=== PATIENT | female | born 1940 | race Caucasian/White ===

== ENCOUNTER → 2016-05-08 | Outpatient (CLI) | payer MEDICARE ==
[~2016-05-08] MED LIST: ALLEGRA ALLERG180 MG PO; AMBIEN10 MG PO; ASPIRIN E.C. 8181 MG PO; ATENOLOL25 MG PO; BETAPACE 80MG80 MG PO; CALCIUM + D 6001 TAB PO; CELEXA10 MG PO; CLEOCIN HCL300 MG PO; COZAAR 25MG25 MG/TAB PO; CRESTOR 10MG10 MG PO; ELIQUIS 5MG PO; IBU600 MG PO; LASIX 20MG TABL20 MG PO; LASIX20 MG PO; OMEGA-31000 MG PO; SINGULAIR 110 MG/TAB PO; TENORMIN 5050 MG/TAB PO; TENORMIN100 MG PO; ULTRAM 50MG TAB50 MG PO; VITAMIN C500 MG PO; ZOCOR 20MG20 MG PO
== END ==
LOC: MC.RAD 11:28
DX: Z12.31 Encounter for screening mammogram for malignant neoplasm of breast (principal)

== ENCOUNTER → 2017-01-16 | Outpatient (REF) ==
[2017-01-16 09:59] LABS: PH 6 (5-8); SQUAMOUS EPITHELIAL None Seen /hpf; URINE APPEARANCE Clear; URINE BACTERIA None Seen /hpf; URINE BILIRUBIN Negative (NEGATIVE); URINE BLOOD Negative (NEGATIVE); URINE COLOR Straw; URINE GLUCOSE Negative (NEGATIVE); URINE KETONE Negative (NEGATIVE); URINE RBC 0-2 /hpf; URINE UROBILINOGEN Negative (NEGATIVE); URINE WBC 0-2 /hpf
== END ==
LOC: ZCOL.LAB 09:41
PROVIDERS: Orthopaedic Surgery
DX: Z01.89 Encounter for other specified special examinations (principal)

== ENCOUNTER → 2017-09-17 | Outpatient (CLI) | payer MEDICARE | LOC: COL.VAS 10:45 | DX: R22.41 Localized swelling, mass and lump, right lower limb (principal); M79.9 Soft tissue disorder, unspecified ==

== ENCOUNTER 2017-11-24 13:52 | Emergency (ER) | payer MEDICARE ==
[~2017-11-24] VITALS: Ht 162.6 cm; Wt 79.1 kg
[2017-11-24 13:55] VITALS: BP 138/83; TEMP 98.7
[2017-11-24] MEDS ORDERED: VITAMIN D31000 IU PO (14:08)
[2017-11-24 15:03] VITALS: PULSE 102
== END 2017-11-24 15:08 | disposition home or self-care (01) ==
LOC: COL.ER 13:52
DX: S81.812A Laceration without foreign body, left lower leg, initial encounter (principal); I48.91 Unspecified atrial fibrillation; Z79.01 Long term (current) use of anticoagulants; Z79.82 Long term (current) use of aspirin; W26.8XXA Contact with other sharp object(s), not elsewhere classified, initial encounter; Y92.009 Unspecified place in unspecified non-institutional (private) residence as the place of occurrence of the external cause

== ENCOUNTER 2018-09-23 07:38 | Day surgery (SDC) | payer MEDICARE ==
[~2018-09-23] VITALS: Ht 162.7 cm; Wt 82.0 kg
[~2018-09-23 07:38] MED LIST changes: +VITAMIN D31000 IU PO
[2018-09-23] MEDS ORDERED: MOBIC15 MG PO (08:10)
[2018-09-23] MEDS ORDERED: CELEXA40 MG PO (08:22)
[2018-09-23] MEDS ORDERED: LASIX 40MG TABL40 MG PO (08:23)
[2018-09-23] MEDS ORDERED: CALCIUM 600MG+D1 TAB PO (08:29)
[2018-09-23 08:51] VITALS: BP 125/73; PULSE 77; TEMP 98.2
[2018-09-23] MEDS ORDERED: FOSAMAX 70MG TA70 MG PO (08:57)
[2018-09-23] MEDS ORDERED: PRILOSEC 20MG20 MG PO (08:59)
[2018-09-23 09:55] VITALS: BP 131/67; PULSE 82
--- NOTE | 2018-09-23 10:17 | NUR ---
PLEASE SEE MERGE FOR ALL MEDICATION ADMINISTRATION TIMES ALSO FOR SEDATION ASSESSMNET DURING AND POST PROCEDURE.
[2018-09-23] MEDS ORDERED: CLEOCIN HCL300 MG PO (10:38)
[2018-09-23 10:45] VITALS: BP 123/72; PULSE 100
--- NOTE | 2018-09-23 10:45 | NUR ---
Pt returned to [facility] 15 per bed s/p loop recorder removal and replacement. Pt resting well.
[2018-09-23 11:00] VITALS: BP 126/67; PULSE 77
[2018-09-23 11:15] VITALS: BP 121/69; PULSE 76; TEMP 98.1
[2018-09-23 11:30] VITALS: BP 133/76; PULSE 76
--- NOTE | 2018-09-23 11:35 | NUR ---
Pt has ambulated, voided and marlo PO intake s n/v. PIV removed with catheter intact.
--- NOTE | 2018-09-23 11:45 | NUR ---
Pt discharged per w/c by nurse with .
== END 2018-09-23 11:57 | disposition home or self-care (01) ==
LOC: COL.CAR 07:38
DX: I48.0 Paroxysmal atrial fibrillation (principal); I10 Essential (primary) hypertension; E78.5 Hyperlipidemia, unspecified; M06.9 Rheumatoid arthritis, unspecified; J45.909 Unspecified asthma, uncomplicated; F10.21 Alcohol dependence, in remission; I25.10 Atherosclerotic heart disease of native coronary artery without angina pectoris; Z85.3 Personal history of malignant neoplasm of breast; Z90.12 Acquired absence of left breast and nipple; Z88.1 Allergy status to other antibiotic agents; Z88.2 Allergy status to sulfonamides; Z88.0 Allergy status to penicillin; Z88.8 Allergy status to other drugs, medicaments and biological substances; Z79.82 Long term (current) use of aspirin; Z79.01 Long term (current) use of anticoagulants; Z87.891 Personal history of nicotine dependence; Z80.9 Family history of malignant neoplasm, unspecified; Z82.49 Family history of ischemic heart disease and other diseases of the circulatory system
CPT/HCPCS: J2250; J3010; J3370; J7030; J7050

== ENCOUNTER → 2019-03-04 | Outpatient (CLI) | payer MEDICARE ==
[~2019-03-04] MED LIST changes: +CALCIUM 600MG+D1 TAB PO; +CELEXA40 MG PO; +FOSAMAX 70MG TA70 MG PO; +LASIX 40MG TABL40 MG PO; +MOBIC15 MG PO; +PRILOSEC 20MG20 MG PO
== END ==
LOC: COL.VAS 07:28
DX: I65.23 Occlusion and stenosis of bilateral carotid arteries (principal); I63.9 Cerebral infarction, unspecified

== ENCOUNTER → 2019-03-12 | Outpatient (CLI) | payer MEDICARE | LOC: COL.VAS 03-10 14:15 | DX: I63.9 Cerebral infarction, unspecified (principal); I48.0 Paroxysmal atrial fibrillation; I51.7 Cardiomegaly ==

== ENCOUNTER → 2019-04-15 | Outpatient (CLI) | payer MEDICARE | LOC: COL.RAD 10:43 | DX: I63.9 Cerebral infarction, unspecified (principal) | CPT/HCPCS: Q9967 ==

== ENCOUNTER 2019-04-17 11:57 | Day surgery (SDC) | payer MEDICARE ==
[2019-04-17] VITALS (11 sets, daily range): BP systolic 120–162; BP diastolic 71–82; PULSE 61–73; TEMP 98.4
[~2019-04-17] VITALS: Ht 162.8 cm; Wt 83.7 kg
[~2019-04-17 11:57] MED LIST changes: +BETAPACE 120MG120 MG PO; -BETAPACE 80MG80 MG PO; -COZAAR 25MG25 MG/TAB PO; +COZAAR 50MG50 MG/TAB PO; -ULTRAM 50MG TAB50 MG PO; +ULTRAM ER200 MG PO; -ZOCOR 20MG20 MG PO; +ZOCOR 40MG40 MG PO
[2019-04-17 12:58] LABS: HEMATOCRIT 39.8 % (37.0-47.0); HEMOGLOBIN 13.1 g/dl (12.5-16.0); MEAN CELL VOLUME 89 fl (80.0-100.0); MEAN CORPUSCULAR HEMOGLOBIN 29 pg (27.0-31.0); MEAN CORPUSCULAR HGB CONC 33 g/dl (33.0-37.0); MEAN PLATELET VOLUME 9.3 fl (7.4-10.4); PLATELET COUNT 287 K/mm3 (130-400); RED BLOOD COUNT 4.47 M/mm3 (4.10-5.30); REDCELL DISTRIBUTION WIDTH-CV 13.1 % (11.5-14.5)
[2019-04-17 13:04] LABS: INR 0.9 (0.8-3.0); PROTHROMBIN TIME 10.6 SECONDS (9.7-12.8)
[2019-04-17 13:07] LABS: PARTIAL THROMBOPLASTIN TIME 31.5 SECONDS (26.0-37.0)
[2019-04-17 13:09] LABS: CALCIUM 8.9 mg/dL (8.4-10.2); CREATININE, serum 0.9 (0.52-1.25); POTASSIUM 3.9 mmol/L (3.4-5.0)
--- NOTE | 2019-04-17 14:04 | NUR ---
SEE MERGE FOR MEDICATION ADMINISTRATION TIMES AND INTRA AND POST SEDATION ASSESSMENTS.
--- NOTE | 2019-04-17 15:00 | NUR ---
Pt is back from procedure, report was received from Xiao VAZQUEZ. Pt is awake and alert, p,w,d, TR band to rt wrist with 13 cc air instilled. cms intact to rt hand, no bleeding or hematoma noted, sensation intact. daughter at bs.
--- NOTE | 2019-04-17 17:32 | NUR ---
Pt's recovery is going well, 3cc air removed from band, and 1 cc reinstilled for scant bleeding which stopped with this intervention. wctm
--- NOTE | 2019-04-17 18:35 | NUR ---
The remainder of air removed from the band. no bleeding or hematoma noted, however there is some bruising, plan to monitor for 15-30 minutes, then dc if no problem.
--- NOTE | 2019-04-17 19:30 | NUR ---
Dc and f/u instructions were reviewed with pt who denied any questions at time of discharge. iv dc'd with cath intact, dressing applied. bandaid to rt radial site that remains free of hematoma and bleeding/ pt has been able to drink with no problem, has been ambulatory with steady gait to bathroom, and is escorted to exit via wheelchair for ride home with a friend.
== END 2019-04-17 20:49 | disposition home or self-care (01) ==
LOC: COL.CAR 11:57
PROVIDERS: Internal Medicine Cardiovascular Disease
DX: R07.89 Other chest pain (principal); I48.0 Paroxysmal atrial fibrillation; I10 Essential (primary) hypertension; E78.5 Hyperlipidemia, unspecified; M06.9 Rheumatoid arthritis, unspecified; J45.909 Unspecified asthma, uncomplicated; F10.20 Alcohol dependence, uncomplicated; Z85.3 Personal history of malignant neoplasm of breast; Z90.12 Acquired absence of left breast and nipple; Z88.1 Allergy status to other antibiotic agents; Z88.2 Allergy status to sulfonamides; Z88.8 Allergy status to other drugs, medicaments and biological substances; Z88.0 Allergy status to penicillin; Z79.82 Long term (current) use of aspirin; Z79.01 Long term (current) use of anticoagulants; Z87.891 Personal history of nicotine dependence; Z80.9 Family history of malignant neoplasm, unspecified; Z82.49 Family history of ischemic heart disease and other diseases of the circulatory system; Z82.3 Family history of stroke
CPT/HCPCS: J1644; J2250; J3010; Q9967

== ENCOUNTER → 2020-11-02 | Outpatient (CLI) | payer MEDICARE | LOC: MC.RAD 10:00 | DX: Z12.31 Encounter for screening mammogram for malignant neoplasm of breast (principal) ==

== ENCOUNTER → 2022-07-10 | Outpatient (CLI) | payer MEDICARE ==
[~2022-07-10] MED LIST changes: +TYLENOL 500MG500 MG PO; +ZYRTEC 10MG10 MG PO
== END ==
LOC: COL.VAS 13:06
DX: M79.81 Nontraumatic hematoma of soft tissue (principal)

== ENCOUNTER 2023-11-20 08:50 | Outpatient (CLI) | payer MEDICARE ==
[~2023-11-20] VITALS: Ht 160 cm; Wt 67.1 kg
[~2023-11-20 08:50] MED LIST changes: +BUPRENORPHINE HC8 MG PO; +EVENITY (2210 MG/2.3 SQ; +PLAVIX 75MG TAB75 MG PO; +PROTONIX20 MG PO
[2023-11-20 09:10] VITALS: BP 137/84; PULSE 85; TEMP 99.8
[2023-11-20] MEDS ORDERED: Romosozumab-aqqg 210 MG/2.34 ML 2-Syringe KIT SQ ONE (09:15)
[2023-11-20] MEDS ORDERED: ULTRAM ER100 MG PO (09:16)
[2023-11-20] MEDS ORDERED: PRESERVISION1 SGL PO (09:18)
== END 2023-11-20 09:22 | disposition home or self-care (01) ==
LOC: EUO 08:50
DX: M81.0 Age-related osteoporosis without current pathological fracture (principal); Z79.899 Other long term (current) drug therapy
CPT/HCPCS: J3111

== ENCOUNTER 2024-01-15 12:57 | Outpatient (CLI) | payer MEDICARE ==
[~2024-01-15] VITALS: Ht 160 cm; Wt 70.7 kg
[~2024-01-15 12:57] MED LIST changes: +PRESERVISION1 SGL PO; +ULTRAM ER100 MG PO
[2024-01-15] MEDS ORDERED: Romosozumab-aqqg 210 MG/2.34 ML 2-Syringe KIT SQ ONE (13:15)
[2024-01-15 14:00] VITALS: BP 129/75; PULSE 84; TEMP 98
== END 2024-01-15 14:30 | disposition home or self-care (01) ==
LOC: EUO 12:57
DX: M81.0 Age-related osteoporosis without current pathological fracture (principal)
CPT/HCPCS: J3111

== ENCOUNTER 2024-02-12 12:47 | Outpatient (CLI) | payer MEDICARE ==
[~2024-02-12] VITALS: Ht 160 cm; Wt 69.7 kg
[2024-02-12] MEDS ORDERED: Romosozumab-aqqg 210 MG/2.34 ML 2-Syringe KIT SQ ONE (13:15)
[2024-02-12 13:29] VITALS: BP 119/60; PULSE 86; TEMP 98.5
--- NOTE | 2024-02-12 13:47 | NUR ---
Pt tolerated evenity without issue. She exits dept with steady gait. Free of complaints at discharge.
== END 2024-02-12 13:48 | disposition home or self-care (01) ==
LOC: EUO 12:47
DX: M81.0 Age-related osteoporosis without current pathological fracture (principal)
CPT/HCPCS: J3111